=== PATIENT | male | born 1965 | race American Indian/Alaskan Native ===

== ENCOUNTER 2019-11-15 09:18 | Emergency (ER) | payer MEDICARE ==
[2019-11-15] MEDS ORDERED: ASPIRIN 325 MG TAB PO ONE (09:31)
--- NOTE | 2019-11-15 10:08 | XRay Report ---
CHEST 2 VIEWS INDICATION / CLINICAL INFORMATION: Chest pain. COMPARISON: None available. FINDINGS: SUPPORT DEVICES: None. HEART / MEDIASTINUM: No significant abnormality. LUNGS / PLEURA: No significant pulmonary or pleural abnormality. No pneumothorax. ADDITIONAL FINDINGS: No significant additional findings. IMPRESSION: 1. No acute findings. Signer Name: Tavia Kelley MD Signed: 11/15/2019 10:03 AM Workstation Name: [id number]
[2019-11-15 10:14] LABS: Basophils # (Auto) 0.1 K/mm3 (0.0-0.1); Basophils % (Auto) 1.1 % (0.0-1.8); Eosinophils # (Auto) 0.2 K/mm3 (0.0-0.4); Eosinophils % (Auto) 2.9 % (0.0-4.3); Hemoglobin 9.3 gm/dl (11.8-15.2); Lymphocytes # (Auto) 2.4 K/mm3 (1.2-5.4); Lymphocytes % (Auto) 29.3 % (13.4-35.0); Mean Corpuscular HGB Conc 35 % (32-34); Mean Corpuscular Volume 92 fl (84-94); Monocytes # (Auto) 0.7 K/mm3 (0.0-0.8); Monocytes % (Auto) 8.5 % (0.0-7.3); Platelet Count 336 K/mm3 (140-440); Red Blood Count 2.94 M/mm3 (3.65-5.03); Red Cell Distribution Width 12.3 % (13.2-15.2)
[2019-11-15 10:36] LABS: Calcium 9.2 mg/dL (8.4-10.2)
[2019-11-15 10:43] LABS: Partial Thromboplastin Time 32.3 Sec. (24.2-36.6)
[2019-11-15 11:18] LABS: INR 0.99 (0.87-1.13)
[2019-11-15] MEDS ORDERED: KETOROLAC 30 MG/1 ML INJ IV ONE (14:02)
[2019-11-15] MEDS ORDERED: ASPIRIN 325 MG TAB ONE (14:13)
[2019-11-15] MEDS: KETOROLAC 30 MG/1 ML INJ IM ONE ×2 (14:13→14:15)
[2019-11-15 14:25] LABS: Chol/HDL Ratio 3.52 %
--- NOTE | 2019-11-15 14:59 | Emergency Department Report ---
ED Chest Pain HPI - General Chief Complaint: Chest Pain Stated Complaint: BODY ACHE/HEADACHE/TIGHT CHEST PUI?: No Time Seen by Provider: 11/15/19 13:40 Source: patient Mode of arrival: Ambulatory Limitations: No Limitations - History of Present Illness Initial Comments: Patient is a 54-year-old F [place] male with a past medical history of diabetes and hyper cholesterolemia who is presenting with chest pain for the last 2 wee ks. States that the pain is a aching sore pain and sometimes tight. States the discomfort is in his bilateral shoulders as well. States this is worse when he moves his body lifts his arms or when he walks and exerts himself. States he has no cough fever. States that he has some mild shortness of breath and does get winded sometimes with walking around. Patient states 2 weeks ago he was taken off of his metformin because of his kidney function. Patient does have a appointment to see a dental assisting instructor on November 24. Patient states he was having some discomfort and was worried which prompted him to come to the emergency department today. Pain is 5 out of 10 in severity and is relatively constant and again is worse with movement of his arms and when he walks. Severity scale (0 -10): 5 - Related Data Home Medications Medication Instructions Recorded Confirmed Last Taken AtorvaSTATin 10 mg PO QDAY 10/21/15 10/21/15 10/20/15 Gabapentin [Neurontin] 300 mg PO Q8HR 10/21/15 10/21/15 10/20/15 Insulin Aspart (Nf) [Novolog] 0 unit SQ AC 10/21/15 10/21/15 10/20/15 Insulin Glargine [Lantus] 30 units SQ QHS 10/21/15 10/21/15 10/20/15 Trimix 10/21/15 10/21/15 metFORMIN [Glucophage] 1,000 mg PO BID 10/21/15 10/21/15 10/20/15 Previous Rx's Medication Instructions Recorded Last Taken Type methOCARBAMOL [Robaxin TAB] 500 mg PO Q6H PRN #10 tablet 11/15/19 Unknown Rx traMADoL [Ultram] 50 mg PO Q6HR PRN #10 tablet 11/15/19 Unknown Rx Allergies Allergy/AdvReac Type Severity Reaction Status Date / Time No Known Allergies Allergy Unverified 11/15/19 09:26 Heart Score - HEART Score History: Slightly suspicious EKG: Non-specific Age: 45-65 Risk factors: 1-2 risk factors Troponin: < normal limit HEART Score: 3 ED Review of Systems ROS: Stated complaint: BODY ACHE/HEADACHE/TIGHT CHEST Other details as noted in HPI Comment: All other systems reviewed and negative ED Past Medical Hx - Past Medical History Hx Hypertension: Yes Hx Diabetes: Yes - Surgical History Additional Surgical History: FEET - Social History Smoking Status: Current Every Day Smoker Substance Use Type: None - Medications Home Medications: Home Medications Medication Instructions Recorded Confirmed Last Taken Type AtorvaSTATin 10 mg PO QDAY 10/21/15 10/21/15 10/20/15 History Gabapentin [Neurontin] 300 mg PO Q8HR 10/21/15 10/21/15 10/20/15 History Insulin Aspart (Nf) [Novolog] 0 unit SQ AC 10/21/15 10/21/15 10/20/15 History Insulin Glargine [Lantus] 30 units SQ QHS 10/21/15 10/21/15 10/20/15 History Trimix 10/21/15 10/21/15 History metFORMIN [Glucophage] 1,000 mg PO BID 10/21/15 10/21/15 10/20/15 History methOCARBAMOL [Robaxin TAB] 500 mg PO Q6H PRN #10 tablet 11/15/19 Unknown Rx traMADoL [Ultram] 50 mg PO Q6HR PRN #10 tablet 11/15/19 Unknown Rx ED Physical Exam - General Limitations: No Limitations General appearance: alert, in no apparent distress - Head Head exam: Present: atraumatic, normocephalic - Eye Eye exam: Present: normal appearance - ENT ENT exam: Present: mucous membranes moist - Neck Neck exam: Present: normal inspection - Respiratory Respiratory exam: Present: normal lung sounds bilaterally, chest wall tenderness. Absent: respiratory distress, wheezes, rales, rhonchi - Cardiovascular Cardiovascular Exam: Present: regular rate, normal rhythm, normal heart sounds. Absent: systolic murmur, diastolic murmur, rubs, gallop - GI/Abdominal GI/Abdominal exam: Present: soft, normal bowel sounds. Absent: distended, tenderness, guarding, rebound - Rectal Rectal exam: Present: deferred - Extremities Exam Extremities exam: Present: normal inspection - Back Exam Back exam: Present: normal inspection - Neurological Exam Neurological exam: Present: alert, oriented X3 - Psychiatric Psychiatric exam: Present: normal affect, normal mood - Skin Skin exam: Present: warm, dry, intact, normal color. Absent: rash ED Course Vital Signs 11/15/19 11/15/19 11/15/19 13:53 13:58 14:01 Temperature 97.9 F Pulse Rate 68 Respiratory 14 14 Rate Blood Pressure 213/107 O2 Sat by Pulse 99 99 99 Oximetry ED Medical Decision Making - Lab Data Result diagrams: 11/15/19 09:57 11/15/19 09:57 Lab Results 11/15/19 11/15/19 11/15/19 Range/Units 09:57 09:57 09:57 WBC 8.0 (4.5-11.0) K/mm3 RBC 2.94 L (3.65-5.03) M/mm3 Hgb 9.3 L (11.8-15.2) gm/dl Hct 27.0 L (35.5-45.6) % MCV 92 (84-94) fl MCH 32 (28-32) pg MCHC 35 H (32-34) % RDW 12.3 L (13.2-15.2) % Plt Count 336 (140-440) K/mm3 Lymph % (Auto) 29.3 (13.4-35.0) % Starr % (Auto) 8.5 H (0.0-7.3) % Eos % (Auto) 2.9 (0.0-4.3) % Baso % (Auto) 1.1 (0.0-1.8) % Lymph # 2.4 (1.2-5.4) K/mm3 Starr # 0.7 (0.0-0.8) K/mm3 Eos # 0.2 (0.0-0.4) K/mm3 Baso # 0.1 (0.0-0.1) K/mm3 Seg Neutrophils % 58.2 (40.0-70.0) % Seg Neutrophils # 4.7 (1.8-7.7) K/mm3 PT 12.9 (12.2-14.9) Sec. INR 0.99 (0.87-1.13) APTT 32.3 (24.2-36.6) Sec. Sodium 138 (137-145) mmol/L Potassium 4.8 (3.6-5.0) mmol/L Chloride 103.8 (98-107) mmol/L Carbon Dioxide 23 (22-30) mmol/L Anion Gap 16 mmol/L BUN 34 H (9-20) mg/dL Creatinine 1.8 H (0.8-1.5) mg/dL Estimated GFR 47 ml/min BUN/Creatinine Ratio 19 % Glucose 229 H (75-100) mg/dL Calcium 9.2 (8.4-10.2) mg/dL Troponin T 0.094 H (0.00-0.029) ng/mL Triglycerides (2-149) mg/dL Cholesterol (50-199) mg/dL LDL Cholesterol Direct (50-130) mg/dL HDL Cholesterol (40-59) mg/dL Cholesterol/HDL Ratio % 11/15/19 Range/Units 12:50 WBC (4.5-11.0) K/mm3 RBC (3.65-5.03) M/mm3 Hgb (11.8-15.2) gm/dl Hct (35.5-45.6) % MCV (84-94) fl MCH (28-32) pg MCHC (32-34) % RDW (13.2-15.2) % Plt Count (140-440) K/mm3 Lymph % (Auto) (13.4-35.0) % Starr % (Auto) (0.0-7.3) % Eos % (Auto) (0.0-4.3) % Baso % (Auto) (0.0-1.8) % Lymph # (1.2-5.4) K/mm3 Starr # (0.0-0.8) K/mm3 Eos # (0.0-0.4) K/mm3 Baso # (0.0-0.1) K/mm3 Seg Neutrophils % (40.0-70.0) % Seg Neutrophils # (1.8-7.7) K/mm3 PT (12.2-14.9) Sec. INR (0.87-1.13) APTT (24.2-36.6) Sec. Sodium (137-145) mmol/L Potassium (3.6-5.0) mmol/L Chloride (98-107) mmol/L Carbon Dioxide (22-30) mmol/L Anion Gap mmol/L BUN (9-20) mg/dL Creatinine (0.8-1.5) mg/dL Estimated GFR ml/min BUN/Creatinine Ratio % Glucose (75-100) mg/dL Calcium (8.4-10.2) mg/dL Troponin T 0.085 H (0.00-0.029) ng/mL Triglycerides 152 H (2-149) mg/dL Cholesterol 162 (50-199) mg/dL LDL Cholesterol Direct 98 (50-130) mg/dL HDL Cholesterol 46 (40-59) mg/dL Cholesterol/HDL Ratio 3.52 % - EKG Data -: EKG Interpreted by Fl - EKG Data 11/15/19 14:59 EKG shows a sinus rhythm rate of 73. [place] is normal intervals are normal. Patient does have some flipped T waves in the lateral leads but no ST segment elevation or depressions. Time of interpretation is 940. - Radiology Data Ordering Physician: ED MD ASHUTOSH Date of Service: 11/15/19 Procedure(s): XR chest routine 2V Accession Number(s): [id number] cc: ED MD ASHUTOSH Fluoro Time In Minutes: CHEST 2 VIEWS INDICATION / CLINICAL INFORMATION: Chest pain. COMPARISON: None available. FINDINGS: SUPPORT DEVICES: None. HEART / MEDIASTINUM: No significant abnormality. LUNGS / PLEURA: No significant pulmonary or pleural abnormality. No pneumothorax. ADDITIONAL FINDINGS: No significant additional findings. IMPRESSION: 1. No acute findings. Signer Name: Tavia Kelley MD Signed: 11/15/2019 10:03 AM Workstation Name: [id number] - Medical Decision Making Patient is a 54-year-old F [place] male who is presenting with some chest discomfort for approximately 2 weeks. States the pain is not worsening and is persistent. Pain is worse with movement of his arms and when he walks. Patient has 2 troponins which are less than 0.1. Patient does have some mild renal insufficiency which also could be leading to the slight elevation of his troponin.. Chest x-ray is within normal limits. There is no ST segment elevation on the EKG. Patient's symptoms are atypical and his heart score 3. Patient is does seem to meet criteria for outpatient stress test. We will send a referral to [facility] for possible stress test earlier than the . Patient was given Catapres for his blood pressure. States he did not take his b lood pressure medicines this morning. Critical care attestation.: If time is entered above; I have spent that time in minutes in the direct care of this critically ill patient, excluding procedure time. ED Disposition Clinical Impression: Atypical chest pain, Hypertensive urgency Disposition: DC-01 TO HOME OR SELFCARE Is pt being admited?: No Does the pt Need Aspirin: No Condition: Stable Instructions: Chest Pain (ED), Hypertension (ED) Referrals: LA HARRIS MD [Other] - 3-5 Days Time of Disposition: 15:02
[2019-11-15] MEDS ORDERED: cloNIDine 0.2 MG TAB PO ONE (15:00)
[2019-11-15 15:19] VITALS: BP 208/104
== END 2019-11-15 15:25 | disposition home or self-care (01) ==
LOC: ED 09:18
DX: R07.89 Other chest pain (principal); I16.0 Hypertensive urgency; E11.9 Type 2 diabetes mellitus without complications; F17.200 Nicotine dependence, unspecified, uncomplicated; Z79.4 Long term (current) use of insulin; Z79.899 Other long term (current) drug therapy
CPT/HCPCS: 36415; 71046; 80048; 80061; 82962; 84484; 85025; 85610; 85730; 93005; 96374; 99284; J1885